=== PATIENT | male | born 1950 | race Caucasian/White ===

== ENCOUNTER 2019-09-15 17:38 | Emergency (ER) | payer MEDICARE, SELFPAY ==
[2019-09-15 17:43] VITALS: BP 92/58; PULSE 76; RESP 20; TEMP 36; O2SAT 98
--- NOTE | 2019-09-15 19:09 | ED.GENADULT ---
HPI - General Adult General Chief complaint: Skin/Abscess/Foreign Body Stated complaint: Rash on abd Time Seen by Provider: 09/15/19 18:38 Source: patient Mode of arrival: ambulatory Limitations: no limitations History of Present Illness HPI narrative: Patient is a 69-year-old male who presents to emergency department per EMS noting that he developed a rash while working outside today involving the torso patient notes a urticarial rash with itching and nausea. Patient notes he had had a similar occurrence in the past which resolved. Patient presents for EMS has not received anything for his symptoms and upon resting in the emergency department notes improvement with itching and nausea. Patient denies URI symptoms or any tongue swelling or difficulty swallowing or other allergic exposures or contacts. Related Data Allergies Allergy/AdvReac Type Severity Reaction Status Date / Time No Known Allergies Allergy Unverified 04/21/15 06:17 Review of Systems Review of Systems: All systems reviewed & are unremarkable except as noted in HPI and below PMFSH Past Medical History Medical History (Updated 09/15/19 @ 19:26 by Jc Sandhu PA-C) Hypertension Social History Social History (Updated 09/15/19 @ 19:10 by Jc Sandhu PA-C) Smoking status: Current every day smoker Exam Narrative: Exam Narrative: GENERAL: Well-appearing, well-nourished, and in no acute distress. HEAD: Normocephalic, atraumatic. EYES: PERRLA and EOMI. ENT: Nares clear, no rhinorrhea or epistaxis. Mucous membranes moist. No angioedema in the oropharynx NECK: Supple. No adenopathy or masses. No stridor CHEST: Clear to auscultation. No respiratory distress. No wheezes rales or rhonchi HEART: Regular rate and rhythm. No murmur heard. Normal peripheral pulses. EXTREMITIES: Urticarial rash of the torso and groin SKIN: Warm, dry, no rash. NEURO: No focal deficits. Alert and oriented x3. PSYCH: Normal mood and affect. Course Course Emergency Course: Patient in the room in no distress aware of case findings treatment plan and diagnosis agreeing to follow-up as directed felt appropriate for outpatient reevaluation. Patient hydrating and was given antihistamines and steroids in the emergency department with improvement Vital Signs Vital signs: Vital Signs Temperature 96.8 F L 09/15/19 17:43 Pulse Rate 76 09/15/19 17:43 Respiratory Rate 20 09/15/19 17:43 Blood Pressure 92/58 L 09/15/19 17:43 Pulse Oximetry 98 09/15/19 17:43 Temperature 96.8 F L 09/15/19 17:43 Pulse Rate 81 09/15/19 19:19 Respiratory Rate 16 09/15/19 19:19 Blood Pressure 109/59 L 09/15/19 19:19 Pulse Oximetry 95 09/15/19 19:19 Medical Decision Making MDM Narrative Medical decision making narrative: Patient with urticaria of unknown etiology in the room in no distress no stridor no angioedema patient with improved condition with being removed from the heat tolerating p.o. intake given antihistamines and steroids will be discharged home provided with reasons to return felt appropriate for outpatient reevaluation Vital Signs Vital Signs: Vital Signs Temperature 96.8 F L 09/15/19 17:43 Pulse Rate 76 09/15/19 17:43 Respiratory Rate 20 09/15/19 17:43 Blood Pressure 92/58 L 09/15/19 17:43 Pulse Oximetry 98 09/15/19 17:43 Temperature 96.8 F L 09/15/19 17:43 Pulse Rate 81 09/15/19 19:19 Respiratory Rate 16 09/15/19 19:19 Blood Pressure 109/59 L 09/15/19 19:19 Pulse Oximetry 95 09/15/19 19:19 Discharge Plan Discharge Clinical Impression: Urticaria Patient Disposition: Home, Self-Care Condition: Stable Instructions: Antibiotic Form, Urticaria (ED) Additional Instructions: Follow up with your primary care doctor in 5-7 days for re-evaluation. Go to ER for worsening pain, vision changes, nausea/vomiting, fever/chills, weakness, chest pain, shortness of breath, numbness/tingling, slurred speech, dif
[2019-09-15] MEDS: ONDANSETRON HCL ODT 4 MG TABLET PO (19:16)
[2019-09-15] MEDS: diphenhydrAMINE HCl CAP 25 MG CAPSULE PO (19:16)
[2019-09-15] MEDS: FAMOTIDINE 20 MG TABLET PO (19:17)
[2019-09-15] MEDS: predniSONE 20 MG TABLET 60 MG PO (19:17)
--- NOTE | 2019-09-15 19:18 | PC.NURSE ---
report received at this time. pt resting on stretcher with daughter at bedside. VS stable, RR even and unlabored, denies any needs/concerns.
[2019-09-15 19:19] VITALS: BP 109/59; PULSE 81; RESP 16; O2SAT 95
[2019-09-15 20:01] VITALS: BP 119/59; PULSE 70; RESP 17; O2SAT 99
== END 2019-09-15 20:13 | disposition home or self-care (01) ==
PROVIDERS: Emergency Provider Emergency Medicine; PCP Family Medicine Adolescent Medicine
DX: L50.9 Urticaria, unspecified (principal); I10 Essential (primary) hypertension
CPT/HCPCS: 99283; A9270; J7512

== ENCOUNTER 2019-11-18 22:25 | Emergency (ER) | payer MEDICARE, SELFPAY ==
[2019-11-18 22:34] VITALS: BP 125/59; PULSE 97; RESP 14; TEMP 36.3; O2SAT 93
--- NOTE | 2019-11-18 22:42 | ED.ABDPAIN ---
HPI - Abdominal Pain General Chief Complaint: Allergic Reaction Stated Complaint: sob Time Seen by Provider: 11/18/19 22:27 Source: patient and EMS Mode of arrival: EMS Limitations: no limitations History of Present Illness HPI narrative: Patient is a 69-year-old male who presents per EMS from home for evaluation of hives shortness of breath and itching that began acutely patient denies any new exposures or potential causes patient does note similar allergic reactions in the past patient did not take anything for his symptoms contacted EMS who presented gave an albuterol treatment and gave Solu-Medrol with improvement upon arrival to emergency department patient on arrival is in the room in no distress notes itching and irritation Related Data Allergies Allergy/AdvReac Type Severity Reaction Status Date / Time No Known Allergies Allergy Unverified 04/21/15 06:17 Review of Systems Review of Systems: All systems reviewed & are unremarkable except as noted in HPI and below PMFSH Past Medical History Medical History Hypertension Social History Social History Smoking status: Current every day smoker Exam Narrative: Exam Narrative: GENERAL: Well-appearing, well-nourished, and in no acute distress. HEAD: Normocephalic, atraumatic. EYES: PERRLA and EOMI. ENT: Nares clear, no rhinorrhea or epistaxis. Mucous membranes moist. Oropharynx without tonsillar hypertrophy exudate or other lesions. No angioedema in the oropharynx NECK: Supple. No adenopathy or masses. No stridor CHEST: Clear to auscultation. No respiratory distress. No wheezes rales or rhonchi HEART: Regular rate and rhythm. No murmur heard. Normal peripheral pulses. ABDOMEN: Soft, nontender, nondistended EXTREMITIES: Normal range of motion. No edema. SKIN: Warm, dry, patient with urticaria over the torso and extremities NEURO: No focal deficits. Alert and oriented x3. PSYCH: Normal mood and affect. Course Course Emergency Course: Patient in the room at this time resting comfortably in no distress will be discharged home with medications unsure as to the cause of his allergic reaction advised to follow with primary care for further evaluation and given reasons to return Vital Signs Vital signs: Vital Signs Temperature 97.4 F L 11/18/19 22:34 Pulse Rate 97 11/18/19 22:34 Respiratory Rate 14 11/18/19 22:34 Blood Pressure 125/59 L 11/18/19 22:34 Pulse Oximetry 93 11/18/19 22:34 Temperature 97.4 F L 11/18/19 22:34 Pulse Rate 76 11/18/19 23:33 Respiratory Rate 14 11/18/19 23:33 Blood Pressure 116/48 L 11/18/19 23:33 Pulse Oximetry 94 11/18/19 23:33 MDM - Abdominal Pain MDM Narrative Medical decision making narrative: Patient given medications with improvement of his condition in the emergency department will be discharged home with medications for allergic reaction advised to follow with primary care for consideration of referral to a distributor of directories given his allergic reactions in the past with no known etiology patient hemodynamically stable afebrile nontoxic-appearing no distress feeling much better at this time Lab Data Result diagrams: 11/18/19 22:43 11/18/19 22:43 Labs: Lab Results 11/18/19 11/18/19 Range/Units 22:43 22:43 WBC 11.2 H (4.5-10.0) K/mm3 RBC 4.95 (4.6-6.20) M/mm3 Hgb 15.4 (14.0-18.0) g/dL Hct 46.5 (42.0-52.0) % MCV 93.9 (80-100) fl MCH 31.1 (26-34) pg MCHC 33.1 (32-36) g/dl RDW 13.9 (11.5-14.5) % Plt Count 203 (150-375) k/mm3 MPV 10.1 (7.4-10.4) fl Immature Gran % (Auto) 0.5 (0-0.5) % Neut % (Auto) 47.3 (45.5-73.1) % Lymph % (Auto) 39.6 (18.3-44.2) % Summers % (Auto) 8.3 (2.6-8.5) % Eos % (Auto) 3.9 (0-4.4) % Baso % (Auto) 0.4 (0.2-1.2) % Lymph # (Auto) 4.42 H (0.9-3.2) K/mm3 Summers # (Auto) 0.9 H
[2019-11-18 22:49] LABS: Basophils Percent Auto 0.4 % (0.2-1.2); Eosinophils Absolute Auto 0.4 K/mm3 (0-0.3); Eosinophils Percent Auto 3.9 % (0-4.4); Hematocrit 46.5 % (42.0-52.0); Hemoglobin 15.4 g/dL (14.0-18.0); Immature Granulocyte Absolute 0.06 K/mm3 (0.00-0.031); Immature Granulocyte Percent A 0.5 % (0-0.5); Lymphocytes Absolute Auto 4.42 K/mm3 (0.9-3.2); Lymphocytes Percent Auto 39.6 % (18.3-44.2); Mean Corpuscular HGB Conc 33.1 g/dl (32-36); Mean Corpuscular Hemoglobin 31.1 pg (26-34); Mean Corpuscular Volume 93.9 fl (80-100); Mean Platelet Volume 10.1 fl (7.4-10.4); Monocytes Absolute Auto 0.9 K/mm3 (0.1-0.6); Monocytes Percent Auto 8.3 % (2.6-8.5); Neutrophils Absolute Auto 5.3 K/mm3 (1.3-6.7); Neutrophils Percent Auto 47.3 % (45.5-73.1); Platelet Count Result 203 k/mm3 (150-375); Red Blood Count 4.95 M/mm3 (4.6-6.20); Red Cell Distribution Width 13.9 % (11.5-14.5); White Blood Count 11.2 K/mm3 (4.5-10.0)
[2019-11-18 23:01] LABS: Alanine Aminotransferase 46 U/L (4-50); Albumin Level 3.9 g/dL (3.5-5.1); Alkaline Phosphatase 65 U/L (38-126); Anion Gap 8 mmol/L (8-16); Aspartate Amino Transferase 37 U/L (17-59); Bilirubin,Total 0.2 mg/dL (0.2-1.3); Blood Urea Nitrogen 29 mg/dL (9-20); Calcium 8.6 mg/dL (8.4-10.2); Carbon Dioxide 28 mmol/L (22-30); Chloride 101 mmol/L (98-107); Estimated CRCL calculation 70 ml/min; Estimated Glomerular Filt Rate > 60; Glucose 212 mg/dL (75-110); Sodium 137 mmol/L (137-145)
[2019-11-18] MEDS: diphenhydrAMINE HCl INJ 50 MG/ML VIAL IV PUSH (23:08)
[2019-11-18] MEDS: FAMOTIDINE 20 MG/2 ML VIAL IV PUSH (23:08)
[2019-11-18] MEDS: SODIUM CHLORIDE 0.9% IV 1,000 ML 999 ML IV CONT (23:09)
[2019-11-18] MEDS: EPINEPHrine HCL INJ 1 MG/ML AMPUL 0.3 MG IM (23:31)
[2019-11-18 23:33] VITALS: BP 116/48; PULSE 76; RESP 14; O2SAT 94
[2019-11-18 23:53] VITALS: PULSE 83; RESP 11
[2019-11-18] MEDS: IPRATROPIUM BR 0.02% INH SOLN 0.5 MG/2.5 ML VIAL INHALATION (23:53)
[2019-11-18] MEDS: ALBUTEROL SULFATE NEB 2.5 MG/0.5 ML INH 5 MG INHALATION (23:53)
[2019-11-19 00:07] VITALS: PULSE 82; RESP 12
== END 2019-11-19 00:35 | disposition home or self-care (01) ==
PROVIDERS: Emergency Medicine Emergency Medical Services; Emergency Provider Emergency Medicine; PCP Family Medicine Adolescent Medicine
DX: L50.0 Allergic urticaria (principal); R06.02 Shortness of breath; T78.40XA Allergy, unspecified, initial encounter; F17.200 Nicotine dependence, unspecified, uncomplicated; I10 Essential (primary) hypertension
CPT/HCPCS: 36415; 80053; 85025; 94640; 96361; 96372; 96374; 96375; 99284; J0171; J1200; J7030

== ENCOUNTER 2020-04-21 12:34 | Outpatient (CLI) | payer MEDICARE, SELFPAY ==
--- NOTE | ~2020-04-21 | US_ITS ---
EXAMINATION: US carotid duplex BI DATE: 04/21/2020 13:10 INDICATION: Right carotid bruit. TECHNIQUE: Grayscale, color Doppler, and pulsed Doppler images of the cervical carotid arteries were obtained. The degree of vessel stenosis is placed in one of the following categories: normal, <50%, 5 0-69%, >=70% but less than near-occlusion, near-occlusion, or total occlusion. Note that percent sten osis relative to normal distal artery lumen diameter is indirectly measured from velocity measurement s as described by Steven, et al. Radiology 2003; 229:340-346. COMPARISON: None. FINDINGS: RIGHT: The right common carotid artery (CCA) peak systolic velocity (PSV) is 111 cm/s. The right internal ca rotid artery (ICA) PSV is 93 cm/s. The right ICA end-diastolic velocity (EDV) is 37 cm/s. The right I CA/CCA PSV ratio is 0.8. Grayscale and color Doppler images yield an estimate of <50% diameter reduct ion from plaque in the ICA. There is antegrade flow in the right vertebral artery. LEFT: The left CCA PSV is 151 cm/s. The left ICA PSV is 89 cm/s. The left ICA EDV is 27 cm/s. The left ICA/ CCA PSV ratio is 0.6. Grayscale and color Doppler images yield an estimate of <50% diameter reduction from plaque in the ICA. There is antegrade flow in the left vertebral artery. IMPRESSION: 1. <50% stenosis in the right internal carotid artery. 2. <50% stenosis in the left internal carotid artery. Reviewed, dictated and finalized at location A. [employer] INSULATION WORKER
== END 2020-04-21 12:35 | disposition home or self-care (01) ==
PROVIDERS: PCP Family Medicine Adolescent Medicine; Visit Provider Family Medicine Adolescent Medicine
DX: R09.89 Other specified symptoms and signs involving the circulatory and respiratory systems (principal); I65.23 Occlusion and stenosis of bilateral carotid arteries
CPT/HCPCS: 93880

== ENCOUNTER 2022-03-22 13:33 | Observation (INO) | payer MEDICARE, SELFPAY ==
[2022-03-22] VITALS (14 sets, daily range): BP systolic 132–159; BP diastolic 46–68; PULSE 70–83; RESP 12–19; TEMP 36.4–36.6; O2SAT 91–99
--- NOTE | ~2022-03-22 | CT_ITS ---
EXAMINATION: CT abdomen pelvis w con DATE: 03/22/2022 17:31 INDICATION: Abdominal pain TECHNIQUE: Computed tomography (CT) of the abdomen and pelvis was performed with 100 mL Omnipaque-350 intravenous contrast. Automated exposure control and iterative reconstruction technique were employe d. The dose-length product was 978.73 mGy-cm. COMPARISON: 10/15/2014 FINDINGS: Mild lingular atelectasis. Heart size is normal. No pericardial or pleural effusion. Liver, gallbladd er, pancreas and right kidney are normal. There is a left internal ureteral stent with loops formed i n the bladder and left renal pelvis. There is irregular wall thickening at the right posterior bladde r wall where previously there was a more well-defined mass which is equivocal for either scarring rel ated to prior tumor resection or recurrent disease. There is an unchanged 7 mm nodule at the lateral limb of the right adrenal gland which given interval stability is most consistent with an adenoma. Th ere are new larger bilateral adrenal masses measuring 1.4 x 1.2 cm the right adrenal and 2.4 x 1.6 cm the left adrenal. Again seen are numerous enhancing splenic nodules which appear slightly larger nisreen suring up to 1.5 cm and enhances to lesser degree than on the prior study. Mild prostatomegaly. There is moderate colonic diverticulosis with a sigmoid predominance. There is no adjacent inflammatory ch rosalva to suggest diverticulitis. Normal appendix. Multiple fluid-filled but not frankly dilated loops of small bowel which could be seen with ileus or enteritis. Small amount of ascites scattered through out the abdomen and pelvis. No abscess or free intraperineal gas. There is thrombosis of the infraren al aorta and bilateral common iliac arteries with interval placement of an aorto bifemoral bypass gra ft which remains patent. Subtle increase in size of a subcutaneous mildly prominent but still normal- sized likely reactive bilateral inguinal lymph nodes. No pathologically enlarged abdominal or pelvic lymphadenopathy. There are numerous sclerotic bone lesions throughout the visualized spine, ribs, pel vis and proximal femurs consistent with widespread osseous metastatic disease. IMPRESSION: 1. Wall thickening at the left posterior bladder in the region of a prior more well-defined bladder m ass which could represent either residual scarring post resection but which is more concerning for [place] recurrence of a bladder cancer. 2. Extensive sclerotic likely metastatic bone lesions throughout the axial and appendicular skeleton along with 2 new bilateral adrenal nodules also concerning for metastatic disease. 3. Numerous small enhancing splenic lesions which appears slightly increased in size since the prior study. Differential would include metastatic disease although there has been limited progression sinc e 2015 suggesting this is recurrent or unrelated splenic hemangiomatosis or infection/granulomatous d isease. 4. Fluid filled but not frankly dilated small bowel with no discrete transition point to suggest obst ruction and would favor ileus or enteritis. 2.5. Small amount of nonspecific ascites throughout the a bdomen and pelvis. 5. Left internal ureteral stent in expected position. No hydronephrosis. 6. Prostatomegaly. 7. Patent aorto bifemoral bypass graft with chronic thrombosis of the distal aorta and common iliac a rteries. Reviewed, dictated and finalized at location A. ECTIVE THERAPY AIDE TEACHER IMPRESSION: 1. Wall thickening at the left posterior bladder in the region of a prior more well-defined bladder mass which could represent either residual scarring post r esection but which is more concerning for local recurrence of a bladder cancer. 2. Extensive sclerotic likely metastatic bone lesions throughout the axial and appendicular skelet
[2022-03-22] MEDS: SODIUM CHLORIDE 0.9% IV 1,000 ML 999 ML IV CONT (16:39)
--- NOTE | 2022-03-22 16:51 | ED.GENADULT ---
HPI - General Adult General Chief complaint: Abdominal Pain Stated complaint: stomach pain Time Seen by Provider: 03/22/22 16:15 Source: RN notes reviewed History of Present Illness HPI narrative: Patient presents emergency department from home for abdominal pain. Patient states pain began approximately 5 AM this morning. Pain is diffuse throughout the abdomen and is described as sharp and stabbing in nature. States is associated with abdominal bloating. States he has not had any nausea or vomiting he denies any diarrhea and states his last bowel movement was yesterday he did take a oxycodone at home with minimal relief as well as has fentanyl patches. Patient states he has a history of bladder cancer for which she is followed by Dr. Godinez. He has metastasis to the spine and is both on fentanyl patches and oxycodone for this. He states that he is however Dr. Wu and starting chemotherapy next week and just visited with radiation oncology yesterday and is post palliative radiation starting next week as well he has had no chemotherapy or radiation treatments up to this point Related Data Home Medications Medication Instructions Recorded Confirmed aspirin 81 mg tablet,delayed 81 mg PO DAILY 03/29/21 10/06/21 release (Adult Low Dose Aspirin) Allergies Allergy/AdvReac Type Severity Reaction Status Date / Time amoxicillin Allergy Severe rash & Verified 03/22/22 16:56 dyspnea Review of Systems Review of Systems: Gen.: Denies fevers or chills ENT: Denies congestion Respiratory: Denies shortness of breath or cough CV: Denies chest pain or palpitations GI: See HPI Musculoskeletal: Denies back pain or muscle pain Neuro: Denies numbness, tingling, weakness or focal weakness Skin: Denies rash Except as documented, all other systems reviewed and negative [facility] Past Medical History Medical History Abnormal colonoscopy 01/24 4 polyps Hypertension Surgical History Surgical History History of aorto-femoral bypass 2016 History of bladder surgery TURB 2016 History of ventral hernia repair 2018 Family History Family History (Updated 10/06/21 @ 08:12 by Yady Godfrey MA) Father Leukemia Mother Heart disease Hypertension Social History Social History Smoking status: Current every day smoker Tobacco type: cigarettes Second hand tobacco smoke exposure: No Alcohol intake: current Drinks per week: 6 Substance use: current Substance use type: marijuana Living arrangements: alone Occupation/Education: retired Gender identity (if verbalized by the patient): Male Sexual Orientation (if Verbalized by the Patient): Straight or Heterosexual Spiritual care concerns: No Agree to blood products: Yes Exam Narrative: APPEARANCE: No acute distress, nontoxic, resting in bed HEENT: Normocephalic, atraumatic, OMM RESPIRATORY: No respiratory distress, clear to auscultation bilaterally with no rhonchi wheezing or rales CARDIOVASCULAR: RRR s murmur ABDOMINAL: Distended and soft diffusely tender to palpation no rebound or guarding MUSCULOSKELETAl: Moves all extremities. No clubbing, cyanosis or edema. NEURO: Awake and alert. Following commands, speech normal, no focal deficits SKIN:: Warm, dry. Normal Color PSYCHIATRIC: Normal affect/mood Course Course Emergency Course: White count elevation I reviewed the patient's outpatient medical records the patient is on Decadron 4 mg twice daily feel the leukocytosis may partially be due to steroid use Discussed with JÚNIOR Frankel for Dr. Burden presentation work-up agrees with admission will start patient on Levaquin and Flagyl at this time for possible enteritis as well as cover UTI Discussed with patient and family results of workup and diagnosis. Discussed need for admis
[2022-03-22 16:52] LABS: Hematocrit 43.5 % (42.0-52.0); Hemoglobin 14.2 g/dL (14.0-18.0); Mean Corpuscular HGB Conc 32.6 g/dl (32-36); Mean Corpuscular Hemoglobin 29.7 pg (26-34); Mean Platelet Volume 9.7 fl (7.4-10.4); Platelet Count Result 226 k/mm3 (150-375); Red Blood Count 4.78 M/mm3 (4.6-6.20); Red Cell Distribution Width 14.5 % (11.5-14.5); White Blood Count 28.7 K/mm3 (4.5-10.0)
[2022-03-22] MEDS: MORPHINE SULFATE (*CRX) 4 MG/ML INJ IV PUSH ×2 (16:56→19:46)
[2022-03-22 17:15] LABS: Alanine Aminotransferase 33 U/L (6-50); Albumin Level 3.9 g/dL (3.5-5.1); Anion Gap 7 mmol/L (8-16); Aspartate Amino Transferase 41 U/L (17-59); Bilirubin,Total 0.6 mg/dL (0.2-1.3); Blood Urea Nitrogen 31 mg/dL (9-20); Calcium 7.8 mg/dL (8.4-10.2); Carbon Dioxide 29 mmol/L (22-30); Chloride 96 mmol/L (98-107); Estimated CRCL calculation 97 ml/min; Estimated Glomerular Filt Rate > 60; Glucose 110 mg/dL (65-110); Lipase 31 U/L (23-300); Potassium 4.2 mmol/L (3.4-5.0); Sodium 132 mmol/L (137-145)
[2022-03-22 17:27] LABS: Band Neutrophils Percent 1 % (0-6); Lymphocytes Absolute Manual 2.87 K/mm3 (1.1-4.5); Lymphocytes Percent Manual 10 % (18-44); Metamyelocytes Percent 2 %; Monocytes Absolute Manual 1.43 K/mm3 (0.1-0.90); Monocytes Percent Manual 5 % (3-9); Neutrophils Absolute Manual 23.82 K/mm3 (1.3-6.7); Neutrophils Percent Manual 82 % (46-73); Total Cells Counted 100
[2022-03-22 17:28] LABS: Platelet Estimate Adequate (Adequate); Schistocytes None Seen (NORMAL)
[2022-03-22 17:30] LABS: Lactic Acid Reflex 1.9 mmol/L (0.7-2.0)
[2022-03-22 17:32] LABS: Alkaline Phosphatase 3663 U/L (38-126)
[2022-03-22 18:45] LABS: Appearance Urine Slightly Cloudy (Clear); Bilirubin Urine Negative (Negative); Blood Urine 3+ (Negative); Color Urine Yellow (Yellow); Glucose Urine UA Negative (Negative); Ketones Urine Negative (Negative); Leukocyte Esterase Ur Trace LEU/UL (Negative); Nitrate Urine Negative (Negative); Protein Urine 2+ mg/dL (Negative); Urobilinogen Urine 0.2 mg/dL (<2.0)
[2022-03-22 18:51] LABS: Bacteria Urine Trace /hpf; Mucus Urine Rare /lpf; RBC Urine >75 /hpf (0-2); WBC Urine 31-50 /hpf
[2022-03-22 18:58] LABS: Add Urine Microscopic? YES
[2022-03-22] MEDS: metroNIDAZOLE 500 MG/ISO 100ML 500 MG/100 ML BAG 100 MG IVPB (19:07)
--- NOTE | 2022-03-22 19:23 | PC.NURSE ---
Patient has fentanyl patch. patient's daughter is going to go home and get his replacement patches.
[2022-03-22] MEDS: PANTOPRAZOLE SODIUM IV 40 MG VIAL IV PUSH (19:57)
--- NOTE | 2022-03-22 20:55 | ADMGEN ---
This patient, Angel Plasencia, was admitted to [facility] Surg Room 312-01. Patient/family oriented to hospital policies and general routines including ID bracelet, bed and alarms, visiting hours, pain management, procedures, bathroom and other care routines, personal items, smoking policy, room service/diet, and visiting hours. Information on how to activate the Rapid Response Team has been discussed. Patient/Family are encouraged to report perceived risks to care and to ask questions if they do not understand what they are told or what they should do.
--- NOTE | 2022-03-22 20:57 | PM.IMHP ---
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 Patient denies any fevers, rigors, chills. Preliminary workup was significant for lab work urinalysis with multiple RBCs and WBCs present, CBC WBC 08386, alk phos [id number], a CT of abdomen and pelvis was reported as: FINDINGS: Mild lingular atelectasis. Heart size is normal. No pericardial or pleural effusion. Liver, gallbladder, pancreas and right kidney are normal. There is a left internal ureteral stent with loops formed in the bladder and left renal pelvis. There is irregular wall thickening at the right posterior bladder wall where previously there was a more well-defined mass which is equivocal for either scarring related to prior tumor resection or recurrent disease. There is an unchanged 7 mm nodule at the lateral limb of the right adrenal gland which given interval stability is most consistent with an adenoma. There are new larger bilateral adrenal masses measuring 1.4 x 1.2 cm the right adrenal and 2.4 x 1.6 cm the left adrenal. Again seen are numerous enhancing splenic nodules which appear slightly larger measuring up to 1.5 cm and enhances to lesser degree than on the prior study. Mild prostatomegaly. There is moderate colonic diverticulosis with a sigmoid predominance. There is no adjacent inflammatory change to suggest diverticulitis. Normal appendix. Multiple fluid-filled but not frankly dilated loops of small bowel which could be seen with ileus or enteritis. Small amount of ascites scattered throughout the abdomen and pelvis. No abscess or free intraperineal gas. There is thrombosis of the infrarenal aorta and bilateral common iliac arteries with interval placement of an aorto bifemoral bypass graft which remains patent. Subtle increase in size of a subcutaneous mildly prominent but still normal-sized likely reactive bilateral inguinal lymph nodes. No pathologically enlarged abdominal or pelvic lymphadenopathy. There are numerous sclerotic bone lesions throughout the visualized spine, ribs, pelvis and proximal femurs consistent with widespread osseous metastatic disease. IMPRESSION: 1. Wall thickening at the left posterior bladder in the region of a prior more well-defined bladder mass which could represent either residual scarring post resection but which is more concerning for local recurrence of a bladder cancer. 2. Extensive sclerotic likely metastatic bone lesions throughout the axial and appendicular skeleton along with 2 new bilateral adrenal nodules also concerning for metastatic disease. 3. Numerous small enhancing splenic lesions which appears slightly increased in size since the prior study. Differential would include metastatic disease although there has been limited progression since 2015 suggesting this is recurrent or unrelated splenic hemangiomatosis or infection/granulomatous disease. 4. Fluid filled but not frankly dilated small bowel with no discrete transition point to suggest obstruction and would favor ileus or enteritis. 2.5. Small amount of nonspecific ascites throughout the abdomen and pelvis. 5. Left internal ureteral stent in expected position. No hydronephrosis. 6. Prostatomegaly. 7. 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 Review of Systems Review of Systems: Abdominal pain Constitutional: Constitutional: Denies chills, Denies fatigue, Denies fever(s), Denies malaise, Denies night sweats, Denies poor appetite and Denies weakness Eyes: Eyes: Denies change in vision ENT: Denies dysphagia and Denies odynophagia Cardiovascu
--- NOTE | 2022-03-22 20:59 | PC.NURSE ---
pt has fentyl patches and meds locked up in med room, fentyl patch on at this time on r chest changed 03/22/22
[2022-03-22 21:05] LABS: Influenza A QL RT-PCR Negative (Negative); Influenza B QL RT-PCR Negative (Negative); SARS-CoV-2 RNA PCR Negative
[2022-03-22] MEDS: SODIUM CHLORIDE 0.9% IV 1,000 ML 100 ML IV CONT (21:13)
--- NOTE | 2022-03-22 21:30 | PC.NURSE ---
called JÚNIOR Payne r/t pt c/o pain 09/20 and meds confirmed
--- NOTE | 2022-03-22 22:16 | PC.NURSE ---
called JÚNIOR Payne about pain, instructed to called MD Concepcion, called MD Concepcion, awaiting call back.
[2022-03-22] MEDS: oxyCODONE HCL (*CRX) 5 MG TAB IR 10 MG PO (23:29)
[2022-03-23] MEDS: metroNIDAZOLE 500 MG/ISO 100ML 500 MG/100 ML BAG 100 MG IVPB ×2 (00:22→05:03)
[2022-03-23] MEDS: oxyCODONE HCL (*CRX) 5 MG TAB IR 10 MG PO ×2 (03:09→09:47)
[2022-03-23] MEDS: HYDROmorphone HCL INJ (*CRX) 1 MG/ML SYR IV PUSH ×2 (04:59→09:42)
[2022-03-23] MEDS: LORazepam INJ (*CRX) 2 MG/ML VIAL 1 MG IV PUSH (04:59)
[2022-03-23 05:40] VITALS: BP 129/64; PULSE 69; RESP 18; TEMP 36.6; O2SAT 93
--- NOTE | 2022-03-23 05:43 | PC.NURSE ---
called MD Concepcion pt required nicotine patch
[2022-03-23 06:25] LABS: Basophils Absolute Auto 0.1 K/mm3 (0.0-0.1); Basophils Percent Auto 0.7 % (0.2-1.2); Eosinophils Absolute Auto 0.2 K/mm3 (0-0.3); Eosinophils Percent Auto 1.1 % (0-4.4); Hematocrit 36.9 % (42.0-52.0); Hemoglobin 11.9 g/dL (14.0-18.0); Immature Granulocyte Absolute 1.03 K/mm3 (0.00-0.031); Immature Granulocyte Percent A 5.9 % (0-0.5); Lymphocytes Absolute Auto 2.62 K/mm3 (0.9-3.2); Mean Corpuscular HGB Conc 32.2 g/dl (32-36); Mean Corpuscular Hemoglobin 29.3 pg (26-34); Mean Corpuscular Volume 90.9 fl (80-100); Mean Platelet Volume 9.6 fl (7.4-10.4); Monocytes Percent Auto 5.6 % (2.6-8.5); Neutrophils Absolute Auto 12.6 K/mm3 (1.3-6.7); Neutrophils Percent Auto 71.7 % (45.5-73.1); Platelet Count Result 175 k/mm3 (150-375); Red Blood Count 4.06 M/mm3 (4.6-6.20); Red Cell Distribution Width 14.6 % (11.5-14.5); White Blood Count 17.5 K/mm3 (4.5-10.0)
--- NOTE | 2022-03-23 06:37 | PC.NURSE ---
nicotine patch order for pt
[2022-03-23 06:38] VITALS: BP 129/64; PULSE 69; RESP 18; TEMP 36.6; O2SAT 93
[2022-03-23 06:45] LABS: Alanine Aminotransferase 27 U/L (6-50); Albumin Level 3.2 g/dL (3.5-5.1); Anion Gap 3 mmol/L (8-16); Aspartate Amino Transferase 33 U/L (17-59); Bilirubin,Total 0.5 mg/dL (0.2-1.3); Blood Urea Nitrogen 23 mg/dL (9-20); Calcium 7.1 mg/dL (8.4-10.2); Carbon Dioxide 27 mmol/L (22-30); Chloride 104 mmol/L (98-107); Estimated CRCL calculation 86 ml/min; Estimated Glomerular Filt Rate > 60; Glucose 91 mg/dL (65-110); Potassium 4.5 mmol/L (3.4-5.0); Sodium 134 mmol/L (137-145)
[2022-03-23 07:08] LABS: Alkaline Phosphatase 2977 U/L (38-126)
[2022-03-23] MEDS: UMECLIDINIUM/VILANTEROL 62.5-25 MCG ELLIPTA 1 PUFF INHALATION (08:00)
[2022-03-23 08:02] VITALS: PULSE 78; RESP 22; O2SAT 93
[2022-03-23 08:04] VITALS: PULSE 78; RESP 22
[2022-03-23] MEDS: NICOTINE (*PBKC) 21 MG PATCH 1 PATCH TRANSDERM (08:17)
--- NOTE | 2022-03-23 11:10 | PM.IMPN ---
Progress Note: A&P Assessment and Plan (1) Abdominal pain: Code(s): R10.9 - Unspecified abdominal pain Status: Acute Assessment and Plan: Admit to regular medical floor NPO Likely secondary to ileus Continue to monitor 03/23/2022 interval history: 71-year-old male with history of bladder cancer and generalized metastasis status post resection of the bladder mass however CT scan done concerning for a growth of the mass, patient was a metastasis to the bone he is in persistent pain and unable to find spot to lay or sleep without pain, patient is being treated with fentanyl patch and Dilaudid for pain control, patient will be seen by urologist and further recommendation to follow, patient urine suspicious for UTI being treated with levaquin, will follow-up on urine culture and sensitivity (2) Acute UTI: Code(s): N39.0 - Urinary tract infection, site not specified Status: Acute Assessment and Plan: Patient started on levofloxacin (3) Bladder cancer metastasized to bone: Code(s): C67.9 - Malignant neoplasm of bladder, unspecified; C79.51 - Secondary malignant neoplasm of bone Status: Acute Assessment and Plan: Urology consult CT of abdomen and pelvis concerning for recurrence (4) Essential (primary) hypertension: Code(s): I10 - Essential (primary) hypertension Status: Acute Assessment and Plan: Holding blood pressure medications\ Resume as needed (5) Emphysema, unspecified: Code(s): J43.9 - Emphysema, unspecified Status: Acute Assessment and Plan: Breathing treatments Not actively wheezing (6) Peripheral vascular disease, unspecified: Code(s): I73.9 - Peripheral vascular disease, unspecified Status: Acute Assessment and Plan: Unchanged (7) Nicotine dependence, cigarettes, with other nicotine-induced disorders: Code(s): F17.218 - Nicotine dependence, cigarettes, with other nicotine-induced disorders Status: Acute Assessment and Plan: Nicotine patch as needed Subjective Date/time seen: 03/23/22 11:10 HPI-Narrative: This is a 71-year-old male with past medical history significant for bladder CA, hypertension, COPD/emphysema, patient now with metastatic bladder cancer to multiple bone sites presents today to the emergency room after he woke up from his sleep with intense diffusely localized abdominal pain not able to pass gas, no nausea, no vomiting.? Patient denies any fevers, rigors, chills.? Preliminary workup was significant for lab work urinalysis with multiple RBCs and WBCs present, CBC WBC 79268, alk phos 3660, a CT of abdomen and pelvis was reported as: FINDINGS: Mild lingular atelectasis. Heart size is normal. No pericardial or pleural effusion. Liver, gallbladder, pancreas and right kidney are normal. There is a left internal ureteral stent with loops formed in the bladder and left renal pelvis. There is irregular wall thickening at the right posterior bladder wall where previously there was a more well-defined mass which is equivocal for either scarring related to prior tumor resection or recurrent disease. There is an unchanged 7 mm nodule at the lateral limb of the right adrenal gland which given interval stability is most consistent with an adenoma. There are new larger bilateral adrenal masses measuring 1.4 x 1.2 cm the right adrenal and 2.4 x 1.6 cm the left adrenal. Again seen are numerous enhancing splenic nodules which appear slightly larger measuring up to 1.5 cm and enhances to lesser degree than on the prior study. Mild prostatomegaly. There is moderate colonic diverticulosis with a sigmoid predominance. There is no adjacent inflammatory change to suggest diverticulitis. Normal appendix. Multiple fluid-filled but not frankly dilated loops of small bowel which could be seen with ileus or enteritis. Small amount of ascites scattered throughout the abdomen and pelvis. No abscess or free intrape
--- NOTE | 2022-03-23 13:50 | PC.NURSE ---
Pt left MARYBETH @ [phone]
--- NOTE | 2022-03-31 15:16 | PM.DS ---
DS: Admitting Diagnosis Discharge Date 03/23/22 Admitting Diagnosis Abdominal pain DS: Summary Hospital Course Reason for hospitalization: Abdominal pain Narrative: This is a 71-year-old male with past medical history significant for bladder CA, hypertension, COPD/emphysema, patient now with metastatic bladder cancer to multiple bone sites presents today to the emergency room after he woke up from his sleep with intense diffusely localized abdominal pain not able to pass gas, no nausea, no vomiting.? Patient denies any fevers, rigors, chills.? Preliminary workup was significant for lab work urinalysis with multiple RBCs and WBCs present, CBC WBC [id number], alk phos 3660, a CT of abdomen and pelvis was reported as: Hospital Course: 71-year-old male with history of bladder cancer and generalized metastasis status post resection of the bladder mass however CT scan done concerning for a growth of the mass, patient was a metastasis to the bone he is in persistent pain and unable to find spot to lay or sleep without pain,? patient is being treated with fentanyl patch and Dilaudid for pain control, patient will be seen by urologist and further recommendation to follow, patient urine suspicious for UTI being treated with levaquin,? will follow-up on urine culture and sensitivity patient left AMA Time Spent with Patient Time attestation: Total time spent providing and/or coordinating discharge services: Discharge Plan Discharge Consulting providers: Nathaniel Smith Patient Disposition: Left Against Medical Advice Discharge Medications: No Action aspirin [Adult Low Dose Aspirin] 81 mg tablet,delayed release (DR/EC) 81 mg PO DAILY albuterol sulfate 90 mcg/actuation HFA aerosol inhaler 4 inhalation INHALATION Q4H PRN (Reason: shortness of breath or wheezing) Qty: 6.7 0RF Rx Instructions: until breathing returns to target peak flow/parameters epinephrine [EpiPen 2-Chidi] 0.3 mg/0.3 mL auto-injector 0.3 mg IM ONCE PRN (Reason: anaphylaxis) Qty: 1 0RF Rx Instructions: as a single dose, emergency use ondansetron HCl 8 mg tablet 8 mg PO PRN PRN (Reason: Nausea) pantoprazole 40 mg tablet,delayed release (DR/EC) 40 mg PO DAILY dexamethasone 4 mg tablet 8 mg PO DAILY fentanyl 25 mcg/hr patch 72 hour 25 mcg transdermal Q3D Rx Instructions: change q3d, last changed 03/22/22 fentanyl 12 mcg/hr patch 72 hour 12 mcg transdermal Q3D Rx Instructions: change q3days, last changed 03/22/22 oxycodone 10 mg tablet 10 mg PO Q4H PRN (Reason: Pain) Anoro Ellipta 62.5-25 mcg/actuation blister with device 1 inh INHALATION DAILY tamsulosin 0.4 mg capsule 0.8 mg PO BID Rx Instructions: 0.8 mg daily atorvastatin 40 mg tablet 40 mg PO DAILY Qty: 90 1RF candesartan 16 mg tablet 16 mg PO DAILY Qty: 90 1RF Date of admission: 03/22/22 18:57 Primary Care Provider: Guillermo Senior Admitting Provider: Nettie Concepcion V. Attending physician on admission: Damon Hudson Condition: Stable
== END 2022-03-23 13:05 | disposition left against medical advice (07) ==
LOC: ANHED 16:58 → ANH3MEDSUR 20:57
PROVIDERS: Admitting Provider Internal Medicine; Emergency Provider Emergency Medicine; PCP Family Medicine Adolescent Medicine; Visit Provider Family Medicine
DX: R10.9 Unspecified abdominal pain (principal); N39.0 Urinary tract infection, site not specified; R14.0 Abdominal distension (gaseous); C67.9 Malignant neoplasm of bladder, unspecified; C79.51 Secondary malignant neoplasm of bone; I82.529 Chronic embolism and thrombosis of unspecified iliac vein; I74.10 Embolism and thrombosis of unspecified parts of aorta; I73.9 Peripheral vascular disease, unspecified; Z95.1 Presence of aortocoronary bypass graft; Z20.822 Contact with and (suspected) exposure to COVID-19; I10 Essential (primary) hypertension; D72.829 Elevated white blood cell count, unspecified; N40.0 Benign prostatic hyperplasia without lower urinary tract symptoms; J43.9 Emphysema, unspecified; Z96.0 Presence of urogenital implants; F17.218 Nicotine dependence, cigarettes, with other nicotine-induced disorders; F10.90 Alcohol use, unspecified, uncomplicated; F12.90 Cannabis use, unspecified, uncomplicated; Z79.82 Long term (current) use of aspirin; Z79.891 Long term (current) use of opiate analgesic; Z79.899 Other long term (current) drug therapy; Z80.6 Family history of leukemia; Z82.49 Family history of ischemic heart disease and other diseases of the circulatory system
CPT/HCPCS: 36415; 74177; 80053; 81001; 83605; 83690; 85025; 87086; 87636; 94640; 96361; 96365; 96366; 96375; 96376; 99285; A9270; C9113; G0378; J1170; J1956; J2060; J2270; J7030; Q9967